=== PATIENT | male | born 1940 | race Caucasian/White ===

== ENCOUNTER 2016-12-08 12:10 | Emergency (ER) | payer MEDICARE, BC ==
[~2016-12-08] VITALS: Ht 170.2 cm; Wt 72.5 kg
[~2016-12-08 12:10] MED LIST: ASPI81CH CHEW; CLON0.5T PO; LAMI200T PO; LIPI10TA PO; TAMS5CAP PO; [UNRECOGNIZED DRUG - OTHER]
[2016-12-08 12:15] VITALS: BP 158/83; PULSE 56; RESP 16; TEMP 98; O2SAT 100
[2016-12-08] MEDS ORDERED: DORZ2SOL15 EACH EYE (12:32)
[2016-12-08] MEDS ORDERED: SODIUM CHLORIDE 0.9% FLUSH 5 ML FLUSH IVF PRN (12:45)
--- NOTE | 2016-12-08 12:46 | PD ---
HPI Chief Complaint: Hypertension Time Seen by Provider: 12:40 Travel History International Travel<30 days: No Contact w/Intl Traveler<30days: No Traveled to known affect area: No History of Present Illness HPI 75-year-old male with history of recent TIA, presents to the ER today because he states that he feels "not right" when he woke up this morning. He states he feels generally weak and mildly lightheaded. He denies any fevers, vomiting, focal neurological deficits, or other issues. He noted that his blood pressure was elevated compared to usual. Modifying Factors: None Associated Signs & Symptoms: Generally weak, lightheaded Risk Factors: None PFSH Past Medical History Arthritis: Yes (R SHOULDER) Bipolar Disorder: Yes Anxiety: No Depression: No Heart Rhythm Problems: Yes (HX MURMUR. PT STATES NOT CURRENTLY) Cancer: Yes (LEUKEMIA, prostate, CLL) Cardiovascular Problems: No High Cholesterol: No Chemotherapy: No Congestive Heart Failure: No Cerebrovascular Accident: Yes Coronary Artery Disease: Yes Diminished Hearing: Yes (BILAT) Endocrine: No Gastrointestinal Disorders: Yes (LOOSE ANAL SPHINCTER) Glaucoma: Yes Genitourinary: Yes (URINARY URGENCY) Headaches: Yes Hiatal Hernia: Yes (REPAIRED) Hypertension: No Immune Disorder: Yes (LEUKEMIA) Implanted Vascular Access Dvce: Yes Musculoskeletal: Yes Neurologic: Yes Psychiatric: Yes (BIPOLAR I (PT STATES CONTROLLED)) Reproductive: Yes (ERECTILE DYSFUNCTION) Respiratory: Yes (CHRONIC BRONCHITIS) Radiation Therapy: Yes Past Surgical History Abdominal Surgery: Yes (HERNIA REPAIR, APPENDECTOMY) Body Medical Devices: MESH IMPLANT IN ABDOMEN, TITANIUM PLATE IN NECK, GOLD IN PROSTATE Cardiac Surgery: No Ear Surgery: No Endocrine Surgery: No Eye Surgery: Yes (BILAT CATARACT REMOVAL) Genitourinary Surgery: No Neurologic Surgery: No Oral Surgery: Yes (TOOTH EXTRACTIONS) Thoracic Surgery: No Other Surgery: Yes Social History Alcohol Use: No Tobacco Use: No Substance Use: No Allergies-Medications (Allergen,Severity, Reaction): Coded Allergies: Wasp (Verified Allergy, Mild, 12/08/16) Reported Meds & Prescriptions Reported Meds & Active Scripts Active Aspirin 81 Mg Chew 81 Mg CHEW DAILY Reported Dorzolamide-Timolol Opth Drops 22.3-6.8 Mg/Ml Soln 1 Drop EACH EYE BID Lipitor (Atorvastatin Calcium) 10 Mg Tab 10 Mg PO HS Flomax (Tamsulosin HCl) 0.4 Mg Cap 0.4 Mg PO HS Lamictal (Lamotrigine) 200 Mg Tab 200 Mg PO BID Clonazepam 0.5 Mg Tab 0.5 Mg PO BID [nupron ] Review of Systems Except as stated in HPI: all other systems reviewed are Neg Physical Exam Narrative GENERAL: Well-nourished, well-developed elderly white male patient who appears younger than stated age, in no acute distress. SKIN: Warm and dry. HEAD: Normocephalic. EYES: No scleral icterus. No injection or drainage. NECK: Supple, trachea midline. CARDIOVASCULAR: Regular rate and rhythm without murmurs, gallops, or rubs. RESPIRATORY: Breath sounds equal bilaterally. No accessory muscle use. GASTROINTESTINAL: Abdomen soft, non-tender, nondistended. MUSCULOSKELETAL: No cyanosis, or edema. BACK: Nontender without obvious deformity. No CVA tenderness. NEUROLOGICAL: Awake and alert. Cranial nerves II through XII intact. Motor and sensory grossly within normal limits. Five out of 5 muscle strength in all muscle groups. Normal speech. Data Data Last Documented VS Vital Signs Date Time Temp Pulse Resp B/P Pulse Ox O2 Delivery O2 Flow Rate FiO2 12/08/16 12:51 16 98 12/08/16 12:15 98.0 56 158/83 Orders Electrocardiogram (12/08/16 12:40) Complete Blood Count With Diff (12/08/16 12:40) Comprehensive Metabolic Panel (12/08/16 12:40) Magnesium (Mg) (12/08/16 12:40) Ckmb (Isoenzyme) Profile (12/08/16 12:40) Troponin I (12/08/16 12:40) Urinalysis - C+S If Indicated (12/08/16 12:40) Ecg Monitoring (12/08/16 12:40) Iv Access Insert/Monitor (12/08/16 12:40) Oximetry (12/08/16 12:40) Sodium Chloride 0.9% Flush (Ns Flush) (12/08/16 12:45) Labs Laboratory Tests Test 12/08/16 12/08/16 12:47 13:55 White Blood Count 17.8 TH/MM3 Red Blood Count 3.48 MIL/MM3 Hemoglobin 11.9 GM/DL Hematocrit 35.8 % Mean Corpuscular Volume 103.1 FL Mean Corpuscular Hemoglobin 34.2 PG Mean Corpuscular Hemoglobin 33.2 % Concent Red Cell Distribution Width 12.7 % Platelet Count 150 TH/MM3 Mean Platelet Volume 7.5 FL Neutrophils (%) (Auto) 17.8 % Lymphocytes (%) (Auto) 76.4 % Monocytes (%) (Auto) 3.8 % Eosinophils (%) (Auto) 1.8 % Basophils (%) (Auto) 0.2 % Neutrophils # (Auto) 3.2 TH/MM3 Lymphocytes # (Auto) 13.6 TH/MM3 Monocytes # (Auto) 0.7 TH/MM3 Eosinophils # (Auto) 0.3 TH/MM3 Basophils # (Auto) 0.0 TH/MM3 CBC Comment AUTO DIFF Differential Total Cells 100 Counted Neutrophils % (Manual) 16 % Lymphocytes % 80 % Monocytes % 2 % Eosinophils % 2 % Neutrophils # (Manual) 2.8 TH/MM3 Differential Comment FINAL DIFF MANUAL Sodium Level 143 MEQ/L Potassium Level 4.0 MEQ/L Chloride Level 110 MEQ/L Carbon Dioxide Level 26.9 MEQ/L Anion Gap 6 MEQ/L Blood Urea Nitrogen 21 MG/DL Creatinine 1.30 MG/DL Estimat Glomerular Filtration 54 ML/MIN Rate Random Glucose 101 MG/DL Calcium Level 8.5 MG/DL Magnesium Level 2.5 MG/DL Total Bilirubin 0.6 MG/DL Aspartate Amino Transf 45 U/L (AST/SGOT) Alanine Aminotransferase 50 U/L (ALT/SGPT) Alkaline Phosphatase 96 U/L Total Creatine Kinase 80 U/L Troponin I LESS THAN 0.02 NG/ML Total Protein 6.4 GM/DL Albumin 3.8 GM/DL Urine Collection Type CLEAN CATCH Urine Color YELLOW Urine Turbidity CLEAR Urine pH 6.0 Urine Specific [place] 1.006 Urine Protein NEG mg/dL Urine Glucose (UA) NEG mg/dL Urine Ketones NEG mg/dL Urine Occult Blood NEG Urine Nitrite NEG Urine Bilirubin NEG Urine Leukocyte Esterase NEG Urine RBC 0-3 /hpf Urine Squamous Epithelial 0-5 /hpf Cells Microscopic Urinalysis Comment CULT NOT INDICATED Urine Collection Time 13:55 MDM Medical Decision Making Medical Screen Exam Complete: Yes Emergency Medical Condition: Yes Medical Record Reviewed: Yes Interpretation(s) EKG shows sinus bradycardia rate of 53 bpm with no signs of acute ST-T changes. Compared to EKG from 11/21/16. Laboratory Tests Test 12/08/16 12:47 White Blood Count 17.8 TH/MM3 (4.0-11.0) Red Blood Count 3.48 MIL/MM3 (4.50-5.90) Hemoglobin 11.9 GM/DL (13.0-17.0) Hematocrit 35.8 % (39.0-51.0) Mean Corpuscular Volume 103.1 FL (80.0-100.0) Mean Corpuscular Hemoglobin 34.2 PG (27.0-34.0) Lymphocytes (%) (Auto) 76.4 % (9.0-44.0) Lymphocytes # (Auto) 13.6 TH/MM3 (1.0-4.8) Lymphocytes % 80 % (9-44) Chloride Level 110 MEQ/L (98-107) Blood Urea Nitrogen 21 MG/DL (7-18) Estimat Glomerular Filtration 54 ML/MIN (>89) Rate Aspartate Amino Transf 45 U/L (15-37) (AST/SGOT) Troponin I LESS THAN 0.02 NG/ML (0.02-0.05) Differential Diagnosis Generally weak, lightheadednessdehydration versus metabolic issues versus sepsis versus anxiety Narrative Course Patient has no focal neurological deficits. Lab work did not indicate any significant metabolic issues. His EKG shows no signs of acute ST-T changes or dysrhythmias. He does have elevated white blood cell count which are mostly lymphocytosis consistent with his CLL history. At this point, my plan would be to release him with follow-up to primary care physician. Return for any worsening in symptoms as necessary. The plan has been discussed with him and he is agreeable. Diagnosis Primary Impression: General weakness Additional Impression: High blood pressure Disposition: 01 DISCHARGE HOME Condition: Stable Dena Severino MD Dec 08, 2016 12:46
[2016-12-08 12:51] VITALS: O2SAT 98
[2016-12-08 12:58] LABS: AUTOMATED NEUTROPHIL # 3.2 TH/MM3 (1.8-7.7); BASOPHIL % 0.2 % (0.0-2.0); EOSINOPHIL # 0.3 TH/MM3 (0-0.4); EOSINOPHIL % 1.8 % (0.0-4.0); HEMATOCRIT 35.8 % (39.0-51.0); LYMPH % 76.4 % (9.0-44.0); LYMPHOCYTE # 13.6 TH/MM3 (1.0-4.8); MEAN CELL VOLUME 103.1 FL (80.0-100.0); MEAN CORPUSCULAR HEMOGLOBIN 34.2 PG (27.0-34.0); MEAN CORPUSCULAR HGB CONC 33.2 % (32.0-36.0); MONO % 3.8 % (0.0-8.0); NEUT % 17.8 % (16.0-70.0); PLATELET COUNT 150 TH/MM3 (150-450); RED BLOOD COUNT 3.48 MIL/MM3 (4.50-5.90); RED CELL DISTRIBUTION WIDTH 12.7 % (11.6-17.2); WHITE BLOOD COUNT 17.8 TH/MM3 (4.0-11.0)
[2016-12-08 13:01] LABS: HEMO FLAGS AUTO DIFF
[2016-12-08 13:02] LABS: CHLORIDE 110 MEQ/L (98-107); SODIUM (NA) 143 MEQ/L (136-145)
[2016-12-08 13:06] LABS: ANION GAP 6 MEQ/L (5-15); BICARBONATE 26.9 MEQ/L (21.0-32.0); BLOOD UREA NITROGEN 21 MG/DL (7-18); MAGNESIUM 2.5 MG/DL (1.5-2.5)
[2016-12-08 13:09] LABS: ALT (GPT) 50 U/L (12-78); AST (GOT) 45 U/L (15-37); GLOMERULAR FILTRATION RATE 54 ML/MIN (>89)
[2016-12-08 13:11] LABS: TOTAL BILIRUBIN ADULT 0.6 MG/DL (0.2-1.0)
[2016-12-08 13:12] LABS: ALKALINE PHOSPHATASE 96 U/L (45-117)
[2016-12-08 13:16] LABS: CREATINE KINASE 80 U/L (39-308)
[2016-12-08 13:21] LABS: EOSINOPHILS 2 % (0-4); NEUTROPHIL # MANUAL DIFF 2.8 TH/MM3 (1.8-7.7); POLYS (SEG NEUTROPHILS) 16 % (16-70); SCAN/DIFF FINAL DIFF MANUAL; WBC DIFF SAMPLE 100
[2016-12-08 14:00] LABS: BLOOD, URINE NEG (NEG); GLUCOSE,URINE NEG (NEG); KETONE, URINE NEG (NEG); NITRITE,URINE NEG (NEG)
[2016-12-08 14:07] LABS: METHOD OF COLLECTION CLEAN CATCH; RBC, URINE 0-3 /hpf (0-3); SQUAMOUS EPITHELIAL CELL URINE 0-5 /hpf (0-5); URINE COLOR YELLOW (YELLW/STRAW)
[2016-12-08 14:08] LABS: COMMENT (UR) CULT NOT INDICATED; CULTURE IF INDICATED CULT NOT INDICATED
[2016-12-08 14:30] VITALS: BP 112/71
--- NOTE | 2016-12-09 14:22 | EKG ---
Date Performed: 12/08/2016 Time Performed: 12:46:42 PTAGE: 75 years EKG: Sinus bradycardia Poor R wave progression - probable normal variant Inferior T wave changes are nonspecific Low QRS voltages in precordial leads Borderline ECG Compared to prior tracing no sig nificant change PREVIOUS TRACING 11/20/2016 @17.12.30 DOCTOR: Flaco Peterson Interpretating Date/Time 12/09/2016 14:19:07
== END 2016-12-08 14:32 | disposition home or self-care (01) ==
LOC: PHED 12:10
DX: R53.1 Weakness (principal); R03.0 Elevated blood-pressure reading, without diagnosis of hypertension; I25.10 Atherosclerotic heart disease of native coronary artery without angina pectoris; R00.1 Bradycardia, unspecified; Z85.6 Personal history of leukemia; Z85.46 Personal history of malignant neoplasm of prostate; Z86.73 Personal history of transient ischemic attack (TIA), and cerebral infarction without residual deficits
CPT/HCPCS: 80053; 81001; 82550; 83735; 84484; 85007; 85027; 93005

== ENCOUNTER 2017-10-27 20:10 | Emergency (ER) | payer MEDICARE, BC ==
[~2017-10-27] VITALS: Ht 170.2 cm; Wt 68.5 kg
[~2017-10-27 20:10] MED LIST changes: +ASPI-516 CHEW; -ASPI81CH CHEW; +DORZ2SOL15 EACH EYE
[2017-10-27] MEDS ORDERED: TETANUS/DIPHTHERIA TOXOID ADULT 0.5 ML VIAL IM ONE (20:15)
[2017-10-27] MEDS ORDERED: ACETAMINOPHEN 500 MG CPLT PO ONE (20:15)
[2017-10-27 20:23] VITALS: BP 169/96; PULSE 62; RESP 20; TEMP 97.5; O2SAT 100
--- NOTE | 2017-10-27 21:03 | PD ---
HPI Chief Complaint: Fall Time Seen by Provider: 20:13 Travel History International Travel<30 days: No Contact w/Intl Traveler<30days: No Traveled to known affect area: No History of Present Illness HPI Patient is a 76-year-old male who was unloading his truck today when he said the tailgate slipped and he fell backwards impacting his head. He states he reached back with his hands in his bilateral wrist pain as well. He denies any loss of consciousness chest pain shortness breath abdominal pain nausea vomiting. States was only a ground-level fall. His only complaints are bilateral wrist pain. He also has some pain at site of abrasion on the posterior aspect of his skull. He also has a history of anterior neck fusion. According EMS bystanders seen and would not allow the patient to stand up. He refused full spinal packaging. Denies any focalized weakness or numbness tingling in his hands or feet. PFSH Past Medical History Arthritis: Yes (R SHOULDER) Bipolar Disorder: Yes Anxiety: No Depression: No Heart Rhythm Problems: Yes (HX MURMUR. PT STATES NOT CURRENTLY) Cancer: Yes (LEUKEMIA, CLL, PROSTATE, SKIN CA) Cardiovascular Problems: No High Cholesterol: No Chemotherapy: No Congestive Heart Failure: No Cerebrovascular Accident: Yes Coronary Artery Disease: Yes Diminished Hearing: Yes (BILAT) Endocrine: No Gastrointestinal Disorders: Yes (LOOSE ANAL SPHINCTER) Glaucoma: Yes Genitourinary: Yes (URINARY URGENCY) Headaches: Yes Hiatal Hernia: Yes (REPAIRED) Hypertension: No Immune Disorder: Yes (LEUKEMIA) Implanted Vascular Access Dvce: Yes Musculoskeletal: Yes Neurologic: Yes Psychiatric: Yes (BIPOLAR I (PT STATES CONTROLLED)) Reproductive: Yes (ERECTILE DYSFUNCTION) Respiratory: Yes (CHRONIC BRONCHITIS) Radiation Therapy: Yes Past Surgical History Abdominal Surgery: Yes (HERNIA REPAIR, APPENDECTOMY) Body Medical Devices: MESH IMPLANT IN ABDOMEN, TITANIUM PLATE IN NECK, GOLD IN PROSTATE Cardiac Surgery: No Ear Surgery: No Endocrine Surgery: No Eye Surgery: Yes (BILAT CATARACT REMOVAL) Genitourinary Surgery: No Neurologic Surgery: No Oral Surgery: Yes (TOOTH EXTRACTIONS) Thoracic Surgery: No Other Surgery: Yes Social History Alcohol Use: No (SOCIALLY) Tobacco Use: No Substance Use: No Allergies-Medications (Allergen,Severity, Reaction): Coded Allergies: hornet venom (Unverified Allergy, Mild, 10/27/17) Reported Meds & Prescriptions Reported Meds & Active Scripts Active Aspirin 81 Mg Chew 81 Mg CHEW DAILY Reported Dorzolamide-Timolol Opth Drops 22.3-6.8 Mg/Ml Soln 1 Drop EACH EYE BID Lipitor (Atorvastatin Calcium) 10 Mg Tab 10 Mg PO HS Flomax (Tamsulosin HCl) 0.4 Mg Cap 0.4 Mg PO HS Lamictal (Lamotrigine) 200 Mg Tab 200 Mg PO BID Clonazepam 0.5 Mg Tab 0.5 Mg PO BID Review of Systems Except as stated in HPI: all other systems reviewed are Neg Physical Exam Narrative GENERAL: Well-developed well-nourished comfortable appearing. SKIN: Focused skin assessment warm/dry. Small abrasion noted on the occiput of the scalp, no laceration needing repair is visualized. No other abrasions or lacerations seen this person. HEAD: Atraumatic. Normocephalic. EYES: Pupils equal and round. No scleral icterus. No injection or drainage. ENT: No nasal bleeding or discharge. Mucous membranes pink and moist. NECK: Trachea midline. No JVD. CARDIOVASCULAR: Regular rate and rhythm. No murmur appreciated. RESPIRATORY: No accessory muscle use. Clear to auscultation. Breath sounds equal bilaterally. GASTROINTESTINAL: Abdomen soft, non-tender, nondistended. Hepatic and splenic margins not palpable. MUSCULOSKELETAL: No obvious deformities. No clubbing. No cyanosis. No edema. No midline CT or L-spine tenderness, there is some snuffbox tenderness on the right, minimal tenderness above the base of the thumb on the left. Otherwise hands appear atraumatic full nontender range of motion of all fingers at PIP and DIP joints as well as at the wrist. Elbows atraumatic shoulders atraumatic lower extremity is atraumatic. Pulses motor and sensory intact distally in all 4 extremities. NEUROLOGICAL: Awake and alert. No obvious cranial nerve deficits. Motor grossly within normal limits. Normal speech. PSYCHIATRIC: Appropriate mood and affect; insight and judgment normal. Data Data Last Documented VS Vital Signs Date Time Temp Pulse Resp B/P (MAP) Pulse Ox O2 Delivery O2 Flow Rate FiO2 10/27/17 23:28 59 20 156/84 (108) 98 10/27/17 20:[address] Brain W/O Iv Contrast(Rout) (10/27/17 ) Ct Cerv Spine W/O Contrast (10/27/17 ) Wrist, Complete (Sth2jpg) (10/27/17 ) Wrist, Complete ([id number]) (10/27/17 ) Acetaminophen (Tylenol) (10/27/17 20:15) Tetanus/Diphtheria Tox Adult (Tetanus/Di (10/27/17 20:15) Remove Cervical Collar (10/27/17 21:15) Splint Or Brace Apply/Monitor (10/27/17 21:49) Ed Discharge Order (10/27/17 21:54) Tramadol (Ultram) (10/27/17 22:15) Fiberglass Thumb Spica Adult (10/27/17 ) MDM Medical Decision Making Medical Screen Exam Complete: Yes Emergency Medical Condition: Yes Differential Diagnosis Fall, head injury, neck injury, multiple trauma unlikely, scaphoid fracture. Narrative Course Patient roomed emergency department, consistent to have narcotics prior to going to CAT scan however he appears comfortable and I do not appreciate any significant wound on him at this time, Tylenol was given and patient underwent imaging, after imaging continues to insist for narcotic pain medication, at this time I do not see indication for. Wrist imaging was negative head and imaging neck injury negative, c-collar was removed and patient related in the emergency department, discussed with him occult scaphoid fracture still possible , he is placed in a thumb spica and recommended return to emergency department for repeat imaging if still painful in 10-14 days. He is stable for discharge. Diagnosis Primary Impression: Scalp abrasion Qualified Codes: S00.01XA - Abrasion of scalp, initial encounter Additional Impression: Wrist pain, right Patient Instructions: Fall Prevention (DC), General Instructions Additional Instructions: Recommend splint for 2 weeks, then if still painful have repeat xrays. Disposition: 01 DISCHARGE HOME Condition: Stable Randy Hardin MD Oct 27, 2017 21:03
--- NOTE | 2017-10-27 21:04 | RADRPT ---
EXAM DATE/TIME: 10/27/2017 20:39 [facility] COMPARISON: CT BRAIN W/O CONTRAST, November 20, 2016, 17:48. INDICATIONS : Fell backwards and hit back of head. No LOC RADIATION DOSE: 60.95 CTDIvol (mGy) MEDICAL HISTORY : Leukemia. Carcinoma, prostate. SURGICAL HISTORY : None. Oral ENCOUNTER: Initial ACUITY: 1 day PAIN SCALE: 10/10 LOCATION: occipital TECHNIQUE: Multiple contiguous axial images were obtained of the head. Using automated exposure control and adj ustment of the mA and/or kV according to patient size, radiation dose was kept as low as reasonably a chievable to obtain optimal diagnostic quality images. DICOM format image data is available electro nically for review and comparison. FINDINGS: CEREBRUM: Mild ventriculomegaly unchanged.. No evidence of midline shift, mass lesion, hemorrhage or acute inf arction. No extra-axial fluid collections are seen. POSTERIOR FOSSA: The cerebellum and brainstem are intact. The 4th ventricle is midline. The cerebellopontine angle i s unremarkable. EXTRACRANIAL: The visualized portion of the orbits is intact. SKULL: The calvaria is intact. No evidence of skull fracture. CONCLUSION: Negative noncontrast head CT. Adithya Mcgarry MD on October 27, 2017 at 21:01 Board Certified Radiologist. This report was verified electronically.
--- NOTE | 2017-10-27 21:12 | RADRPT ---
EXAM DATE/TIME: 10/27/2017 20:39 [facility] COMPARISON: CT CERVICAL SPINE W/O CONTRAST, June 21, 2014, 19:48. INDICATIONS : Fell, hit back of head. Neck pain. RADIATION DOSE: 25.27 CTDIvol (mGy) MEDICAL HISTORY : Leukemia. Carcinoma, prostate. SURGICAL HISTORY : Fusion, cervical. ENCOUNTER: Initial ACUITY: 1 day PAIN SCALE: 10/10 LOCATION: neck TECHNIQUE: Volumetric scanning of the cervical spine was performed. Multiplanar reconstructions in the sagittal, coronal and oblique axial planes were performed. Using automated exposure control and adjustment o f the mA and/or kV according to patient size, radiation dose was kept as low as reasonably achievable to obtain optimal diagnostic quality images. DICOM format image data is available electronically f or review and comparison. FINDINGS: No fracture or subluxation of the cervical spine. Vertebral bodies have normal height. Solid-appearing fusion with anterior instrumentation again noted at C5/C6 and C6/C7. Severe disc space narrowing with uncovertebral and facet osteoarthritis again noted at C3/C4 and C4/C 5. There is left-sided predominant foraminal stenosis at C3/C4 and bilateral foraminal stenosis at C4 /C5. Severe disc space narrowing with circumferential osseous ridging seen at C7/T1 and with moderate righ t, mild left foraminal stenosis. Paravertebral soft tissues are normal. CONCLUSION: 1. Intact cervical spine. 2. Surgical and degenerative changes as above. Adithya Mcgarry MD on October 27, 2017 at 21:08 Board Certified Radiologist. This report was verified electronically.
--- NOTE | 2017-10-27 21:36 | RADRPT ---
EXAM DATE/TIME: 10/27/2017 20:57 [facility] COMPARISON: No previous studies available for comparison. INDICATIONS : Left wrist pain post fall. MEDICAL HISTORY : None. SURGICAL HISTORY : None. ENCOUNTER: Initial ACUITY: 1 day PAIN SCORE: 5/10 LOCATION: Left wrist FINDINGS: Three view examination of the left wrist demonstrates no soft tissue swelling, dislocation, or fractu re. The carpal bones are in normal alignment. The joint spaces are maintained. Bony mineralization is normal. There is moderate triscaphe and first carpometacarpal loss or arthritis. Also moderate osteoarthritis between the scaphoid and capitate. CONCLUSION: No evidence of fracture or subluxation of the left wrist. Adithya Mcgarry MD on October 27, 2017 at 21:33 Board Certified Radiologist. This report was verified electronically.
--- NOTE | 2017-10-27 21:37 | RADRPT ---
EXAM DATE/TIME: 10/27/2017 20:57 [facility] COMPARISON: No previous studies available for comparison. INDICATIONS : Right wrist pain post fall. MEDICAL HISTORY : None. SURGICAL HISTORY : None. ENCOUNTER: Initial ACUITY: 1 day PAIN SCORE: 5/10 LOCATION: Right wrist FINDINGS: Three view examination of the right wrist demonstrates no soft tissue swelling, dislocation, or fract ure. The carpal bones are in normal alignment. The joint spaces are maintained. Bony mineralizatio n is normal. Moderate mila-scaphoid osteoarthritis. CONCLUSION: Moderate radial sided osteoarthritis. No fracture of the right wrist. Adithya Mcgarry MD on October 27, 2017 at 21:34 Board Certified Radiologist. This report was verified electronically.
[2017-10-27] MEDS ORDERED: traMADol HCL 50 MG TAB PO ONE (22:15)
[2017-10-27 22:30] VITALS: BP 166/74; PULSE 62; RESP 20; O2SAT 99
[2017-10-27 23:28] VITALS: BP 156/84; RESP 20
== END 2017-10-27 23:31 | disposition home or self-care (01) ==
LOC: PHED 20:10
DX: S00.01XA Abrasion of scalp, initial encounter (principal); M25.532 Pain in left wrist; M25.531 Pain in right wrist; W01.0XXA Fall on same level from slipping, tripping and stumbling without subsequent striking against object, initial encounter
CPT/HCPCS: 70450; 72125; 73110; 99284; L3808